=== PATIENT | female | born 1950 | race Caucasian/White ===

== ENCOUNTER 2016-11-03 19:51 | Emergency (ER) | payer BC ==
[2016-11-03 20:04] VITALS: BP 147/60
[2016-11-03] MEDS ORDERED: Tetan/Diph/Pertus SYR(Tdap)* 0.5 ML SYR(BOOSTRIX) use SYR IM ONE (20:07)
[2016-11-03] MEDS ORDERED: Lidocaine 1% MPF* 2 ML VIAL INJ ONE (20:07)
--- NOTE | 2016-11-03 20:45 | RAD ---
HISTORY: Penetrating trauma, laceration COMPARISONS: None VIEWS: 4, Frontal, lateral, and oblique views of the left hand FINDINGS: BONE DENSITY: Normal. BONES: There is no displaced fracture. JOINTS: There is no arthropathy. ALIGNMENT: There is no dislocation. SOFT TISSUES: Unremarkable. OTHER FINDINGS: There is no radiopaque foreign body IMPRESSION: NO RADIOPAQUE FOREIGN BODY. WOOD IS NOT EXPECTED TO HAVE RADIOGRAPHIC CONTRAST WITH SOFT TISSUE. NO ACUTE OSSEOUS INJURY. IF SYMPTOMS PERSIST, RECOMMEND REPEAT IMAGING.
[2016-11-03] MEDS ORDERED: DOXYcycline CAP(*) 100 MG PO ONE (21:16)
--- NOTE | 2016-11-14 17:14 | UC ---
Laceration HPI - HPI Summary HPI Summary: 66 year old female presents with complains left hand laceration. I will sen dher to the ER. - History Of Current Complaint Chief Complaint: UCLaceration Stated Complaint: LEFT HAND LACERATION Time Seen by Provider: 11/03/16 20:05 Pain Intensity: 3 Pain Scale Used: 0-10 Numeric - Allergies/Home Medications Allergies/Adverse Reactions: Allergies Allergy/AdvReac Type Severity Reaction Status Date / Time Sulfa Drugs Allergy Intermediate Hives Verified 11/05/16 10:47 Home Medications: Home Medications Levothyroxine TAB* [Synthroid 125 MCG TAB*] 125 mcg PO DAILY 11/03/16 [History Confirmed 11/05/16] Pravastatin Sodium [Pravachol] 40 mg PO DAILY 11/03/16 [History Confirmed ] PMH/Surg Hx/FS Hx/Imm Hx - Surgical History Surgical History: Yes Surgery Procedure, Year, and Place: Thyroid Ablation, ~2013, [facility]; Partial Mastectomy, ~2004, [place]; Hysterectomy, ~1984 - Social History Alcohol Use: None Substance Use Type: Cocaine Smoking Status (MU): Light Every Day Tobacco Smoker Type: Cigarettes Amount Used/How Often: / PPD Length of Time of Smoking/Using Tobacco: Since Age 18 Have You Smoked in the Last Year: Yes - Immunization History Most Recent Tetanus Shot: 2012 Review of Systems Constitutional: Negative Skin: Other - left hand laceration Eyes: Negative ENT: Negative Respiratory: Negative Cardiovascular: Negative Gastrointestinal: Negative Genitourinary: Negative Motor: Negative Neurovascular: Negative Musculoskeletal: Negative Neurological: Negative Psychological: Negative All Other Systems Reviewed And Are Negative: Yes Physical Exam Triage Information Reviewed: Yes Vital Signs: Initial Vital Signs Temp 37.0 C 11/03/16 19:56 Pulse 72 11/03/16 19:56 Resp 16 11/03/16 19:56 BP 147/60 11/03/16 19:56 Pulse Ox 100 11/03/16 19:56 Eye Exam: Normal ENT Exam: Normal Dental Exam: Normal Neck exam: Normal Neck: Positive: 1 Respiratory Exam: Normal Cardiovascular Exam: Normal Abdominal Exam: Normal Musculoskeletal Exam: Normal Neurological Exam: Normal Psychological Exam: Normal Skin Exam: Normal Laceration Course/Dx - Differential Dx - Laceration/Wound Provider Diagnoses: LEFT HAND LACERATION Discharge - Discharge Plan Condition: Stable Disposition: HOME Patient Education Materials: Laceration (ED), Soft Tissue Foreign Body (ED) Referrals: Mary Jarvis MD [Primary Care Provider] - If Needed
== END 2016-11-03 21:19 | disposition home or self-care (01) ==
LOC: UCCORT 19:51
DX: S61.412A Laceration without foreign body of left hand, initial encounter (principal); W45.8XXA Other foreign body or object entering through skin, initial encounter; Y93.9 Activity, unspecified; Y92.9 Unspecified place or not applicable; Z88.2 Allergy status to sulfonamides; F14.90 Cocaine use, unspecified, uncomplicated; F17.210 Nicotine dependence, cigarettes, uncomplicated
CPT/HCPCS: 12001; 99202; A9270-GY; G0463

== ENCOUNTER 2016-11-05 10:41 | Emergency (ER) | payer BC ==
[2016-11-05 10:58] VITALS: BP 153/74
[2016-11-05] MEDS ORDERED: cefTRIAXone VIAL(*) 1,000 MG VIAL IM ONE (11:23)
[2016-11-05] MEDS ORDERED: Lidocaine 1% MPF* 2 ML VIAL INJ ONE (11:24)
--- NOTE | 2016-11-05 12:30 | UC ---
Skin Complaint HPI - HPI Summary HPI Summary: Pt presents with c/o left hand/wrist erythema, swelling and tenderness that began s/p being bit by dog on November 03. Pt was seen here and reported that she was playing with her dog with a stick from a log pile and pulled the stick off a pile causing a small log to fall onto her left hand a getting a small, 1 cm laceration. Pt also states that she was playing "fetch" with her dog and dog was trying to bite the stick as the small log was falling. Pt now thinks that laceration is from dogs tooth and notes that left hand wrist have become increasingly erythematous, slight swelling and tenderness, since onset. Pt is taking doxycycline as prescribed. Denies fever or chills. Pt had small laceration sutured here on 11/03/16 as she reported the laceration was from the stick, not her pet/dog - History of Current Complaint Chief Complaint: UCSkin Time Seen by Provider: 11/05/16 10:59 Stated Complaint: LEFT HAND SUTURE RECHECK Hx Obtained From: Patient ?: No Onset/Duration: Gradual Onset, Lasting Days, Still Present, Worse Since - onset on 11/03/16 Skin Exposure Onset/Duration: Days Ago - 11/03/16 Onset Severity: Mild Current Severity: Moderate Pain Intensity: 0 Pain Scale Used: 0-10 Numeric Location: Discrete - left hand and distal forearm Character: Swelling, Redness, Painful Aggravating: Touch Alleviating: Unknown Associated Signs & Symptoms: Positive: Tenderness Related History: Other: - dog bite - Allergy/Home Medications Allergies/Adverse Reactions: Allergies Allergy/AdvReac Type Severity Reaction Status Date / Time Sulfa Drugs Allergy Intermediate Hives Verified 11/05/16 10:47 Review of Systems Constitutional: Negative Skin: Other - erythema, tenderness, swelling Eyes: Negative ENT: Negative Respiratory: Negative Cardiovascular: Negative Gastrointestinal: Negative Genitourinary: Negative Motor: Negative Neurovascular: Negative Musculoskeletal: Arthralgia - left hand, Edema - mild, left hand and wrist Neurological: Negative Psychological: Negative All Other Systems Reviewed And Are Negative: Yes PMH/Surg Hx/FS Hx/Imm Hx Previously Healthy: Yes - Surgical History Surgical History: Yes Surgery Procedure, Year, and Place: Thyroid Ablation, ~2013, [facility]; Partial Mastectomy, ~2004, [facility]; Hysterectomy, ~1984 - Family History Known Family History: Positive: Cardiac Disease - Social History Alcohol Use: None Substance Use Type: None Smoking Status (MU): Light Every Day Tobacco Smoker Type: Cigarettes Amount Used/How Often: 1 cigarette daily Length of Time of Smoking/Using Tobacco: Since Age 18 Have You Smoked in the Last Year: Yes - Immunization History Most Recent Tetanus Shot: 2012 Physical Exam Triage Information Reviewed: Yes Appearance: Well-Appearing Vital Signs: Initial Vital Signs Temp 99.2 F 11/05/16 10:49 Pulse 98 11/05/16 10:49 Resp 18 11/05/16 10:49 BP 153/74 11/05/16 10:49 Pulse Ox 97 11/05/16 10:49 Eye Exam: Normal ENT Exam: Normal Neck exam: Normal Respiratory Exam: Normal Musculoskeletal Exam: Other Musculoskeletal: Positive: Strength Intact, ROM Intact - c/o discomfort with ROM , Edema @ - left hand, non pititng, slight swelling Neurological Exam: Normal Psychological Exam: Normal Skin Exam: Other - erythema left hand to wrist, warm to touch, mild swelling, suture intact, no purulent drainage Course/Dx - Course Course Of Treatment: I discussed with the pt the need to monitor for any worsening of infection such as worsening, erythema, discharge, fever, chills, and/or malaise. I discussed with the pt that if symptoms worsen, that she needs to go to the closest emergency room for evaluation and treatment. Pt verbalized understanding and agreed to plan of care. - Differential Diagnoses - Skin Complaint Differential Diagnoses: Cellulitis, Other - sepsis - Diagnoses Provider Diagnoses: cellulitis. infected wound. suture removal. Procedures - Procedure Summary Procedure Summary: 1 suture removed from left dorsal medial hand. edges of laceration remained approximated, no drainage noted , pt tolerated procedure well. Discharge - Discharge Plan Condition: Stable Disposition: HOME Prescriptions: Amoxicillin/Clavulanate TAB* [Augmentin TAB 875*] 875 mg PO Q12H #20 tab Patient Education Materials: Stitches Removal (ED), Cellulitis (ED) Referrals: Mary Jarvis MD [Primary Care Provider] -
== END 2016-11-05 12:14 | disposition home or self-care (01) ==
LOC: UCCORT 10:41
DX: S61.412S Laceration without foreign body of left hand, sequela (principal); L03.114 Cellulitis of left upper limb; W45.8XXS Other foreign body or object entering through skin, sequela; Y92.9 Unspecified place or not applicable; Y99.9 Unspecified external cause status; Z88.2 Allergy status to sulfonamides; F17.210 Nicotine dependence, cigarettes, uncomplicated
CPT/HCPCS: 96372; 99212; G0463; J0696

== ENCOUNTER 2017-06-11 08:00 | Emergency (ER) | payer BC ==
[2017-06-11 09:09] VITALS: BP 129/69
--- NOTE | 2017-06-11 10:15 | UC ---
Throat Pain/Nasal Christophe HPI - HPI Summary HPI Summary: This is an otherwise healthy 66 yo female who presents with c/o cough, ST and nasal congestion x 2d. She has had max temp ~100F. 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 Denies CP, SOB. No chills or severe body aches. - History of Current Complaint Chief Complaint: UCRespiratory Stated Complaint: SORE THROAT Pain Intensity: 6 - Allergies/Home Medications Allergies/Adverse Reactions: Allergies Allergy/AdvReac Type Severity Reaction Status Date / Time Sulfa (Sulfonamide Allergy Hives Verified 06/11/17 08:54 Antibiotics) Home Medications: Home Medications Acetaminophen TAB* [Tylenol TAB*] 650 mg PO Q6H PRN 06/11/17 [History Confirmed 06/11/17] Aspirin EC Low Dose* [Ecotrin EC Low Dose 81 MG*] 81 mg PO DAILY 06/11/17 [ History Confirmed 06/11/17] Atenolol TAB* [Tenormin TAB* 25 MG] 12.5 mg PO QPM 06/11/17 [History Confirmed 06/11/17] Calcium Carbonate [Calcium] 500 mg PO QPM 06/11/17 [History Confirmed 06/11/17] Lansoprazole [Prevacid] 30 mg PO QAM 06/11/17 [History Confirmed 06/11/17] [place]-3 Fatty Acids/Fish Oil [Fish Oil 1,000 mg Capsule] 1 each PO DAILY [History Confirmed 06/11/17] guaiFENesin ER TAB [Mucinex*] 600 mg PO BID PRN 06/11/17 [History Confirmed ] PMH/Surg Hx/FS Hx/Imm Hx Previously Healthy: Yes - Surgical History Surgical History: Yes Surgery Procedure, Year, and Place: Thyroid Ablation, ~2013, [facility]; Partial Mastectomy, ~2004, [facility]; Hysterectomy, ~1984 - Family History Known Family History: Positive: Cardiac Disease - Social History Alcohol Use: None Substance Use Type: None Smoking Status (MU): Current Some Day Smoker Type: Cigarettes Amount Used/How Often: / PPD Length of Time of Smoking/Using Tobacco: Since Age 18 Have You Smoked in the Last Year: Yes - Immunization History Most Recent Tetanus Shot: 2012 Review of Systems Constitutional: Fever, Fatigue Skin: Negative Eyes: Negative ENT: Sore Throat Respiratory: Cough Cardiovascular: Negative Gastrointestinal: Negative Genitourinary: Negative Motor: Negative Neurovascular: Negative Musculoskeletal: Negative Neurological: Negative Psychological: Negative Is Patient Immunocompromised?: No All Other Systems Reviewed And Are Negative: Yes Physical Exam Triage Information Reviewed: Yes Appearance: Ill-Appearing - mildly Vital Signs: Initial Vital Signs Temp 99.8 F 06/11/17 09:04 Pulse 80 06/11/17 09:04 Resp 18 06/11/17 09:04 BP 129/69 06/11/17 09:04 Pulse Ox 98 06/11/17 09:04 Vital Signs Reviewed: Yes Eyes: Positive: Conjunctiva Clear ENT: Positive: Normal ENT inspection, Pharynx normal, TMs normal Neck: Positive: Supple, Enlarged Nodes @ - anterior cervical Respiratory: Positive: Lungs clear, Normal breath sounds. Negative: Crackles, Rhonchi, Stridor, Wheezing Cardiovascular: Positive: RRR, No Murmur Abdomen Description: Positive: Nontender, Soft Musculoskeletal: Positive: Strength Intact Neurological: Positive: Alert Psychological: Positive: Normal Response To Family Skin Exam: Normal Diagnostics - Laboratory Diagnostic Studies Completed/Ordered: Strep - neg. Influenza - neg Throat Pain/Nasal Course/Dx - Course Course Of Treatment: This is an otherwise healthy 66 yo female who presents with 2d h/o cough, congestion and ST. Strep and influenza testing neg. Exam benign. Recommend supportive care. - Differential Dx/Diagnosis Differential Diagnosis/HQI/PQRI: Influenza, Pharyngitis, Sinusitis, URI Provider Diagnoses: 1. Upper respiratory tract infection Discharge - Discharge Plan Condition: Stable Disposition: HOME Patient Education Materials: Upper Respiratory Infection (DC) Referrals: Mary Jarvis MD [Primary Care Provider] - Additional Instructions: Instructions: 1. Rapid strep and influenza testing were negative 2. Use decongestants and throat lozenges for symptom relief
== END 2017-06-11 10:47 | disposition home or self-care (01) ==
LOC: UCCORT 08:00
DX: J06.9 Acute upper respiratory infection, unspecified (principal); F17.210 Nicotine dependence, cigarettes, uncomplicated
CPT/HCPCS: 87502; 87651; 99212; G0463